=== PATIENT | female | born 1960 | race Caucasian/White ===

== ENCOUNTER 2017-08-14 15:54 | Outpatient (CLI) | payer BC | END 2017-08-14 15:55 | disposition home or self-care (01) | LOC: BICMAMMO 15:54 | PROVIDERS: ATTEND Obstetrics & Gynecology | DX: Z12.31 Encounter for screening mammogram for malignant neoplasm of breast (principal) | CPT/HCPCS: 77063; 77067 ==

== ENCOUNTER 2018-08-15 10:37 | Outpatient (CLI) | payer BC ==
--- NOTE | 2018-08-15 11:26 | MMO ---
Bilateral MAMMO Bilat Screen [facility]. CLINICAL HISTORY: Patient is 58 years old and is seen for screening. The patient has no family history of breast cancer. The patient has no personal history of cancer. The patient has a history of bilateral Breast reduction in August, - benign. VIEWS: The views performed were: bilateral craniocaudal with tomosynthesis and bilateral mediolateral oblique with tomosynthesis. FILMS COMPARED: The present examination has been compared to prior imaging studies performed at [facility] on 08/06/2014, 08/08/2015, 07/24/2016 and 08/14/2017. MAMMOGRAM FINDINGS: There are scattered fibroglandular densities. There are no suspicious masses, suspicious calcifications, or new areas of architectural distortion. IMPRESSION: THERE IS NO MAMMOGRAPHIC EVIDENCE OF MALIGNANCY. A ROUTINE FOLLOW-UP MAMMOGRAM IN 1 YEAR IS RECOMMENDED. THE RESULTS OF THIS EXAM WERE SENT TO THE PATIENT. ACR BI-RADS Category 1 - Negative MAMMOGRAPHY NOTE: 1. A negative mammogram report should not delay a biopsy if a dominant of clinically suspicious mass is present. 2. Approximately 10% to 15% of breast cancers are not detected by mammography. 3. Adenosis and dense breasts may obscure an underlying neoplasm.
== END 2018-08-15 10:38 | disposition home or self-care (01) ==
LOC: BICMAMMO 10:37
PROVIDERS: ATTEND Obstetrics & Gynecology
DX: Z12.31 Encounter for screening mammogram for malignant neoplasm of breast (principal); Z98.890 Other specified postprocedural states
CPT/HCPCS: 77063; 77067

== ENCOUNTER 2019-03-04 08:40 | Outpatient (CLI) | payer BC ==
--- NOTE | 2019-03-04 09:07 | MMO ---
Right Breast MAMMO Unilat Diag [facility]. CLINICAL HISTORY: Patient is 58 years old and is seen for diagnostic exam. The patient has a history of bilateral Breast reduction in August, - benign. VIEWS: The views performed were: . FILMS COMPARED: The present examination has been compared to prior imaging studies performed at [facility] on 08/08/2015, 07/24/2016, 08/14/2017 and 08/15/2018. This study has been interpreted with the assistance of computer-aided detection. MAMMOGRAM FINDINGS: There are scattered fibroglandular densities. There are no suspicious masses, suspicious calcifications, or new areas of architectural distortion. IMPRESSION: THERE ARE NO MAMMOGRAPHIC ABNORMALITIES TO EXPLAIN THE PATIENT'S BREAST PAIN. THE PATIENT IS REFERRED BACK TO HER CLINICIAN. NEGATIVE IMAGING FINDINGS SHOULD NOT PRECLUDE FURTHER EVALUATION IF CLINICAL FINDINGS ARE SUSPICIOUS. THE RESULTS OF THIS EXAM WERE SENT TO THE PATIENT. ACR BI-RADS Category 1 - Negative MAMMOGRAPHY NOTE: 1. A negative mammogram report should not delay a biopsy if a dominant of clinically suspicious mass is present. 2. Approximately 10% to 15% of breast cancers are not detected by mammography. 3. Adenosis and dense breasts may obscure an underlying neoplasm. Reported by: CONCHITA PENA MD Electonically Signed: [id number]
== END 2019-03-04 08:41 | disposition home or self-care (01) ==
LOC: BICMAMMO 08:40
PROVIDERS: ATTEND Obstetrics & Gynecology
DX: N64.4 Mastodynia (principal)
CPT/HCPCS: G0279

== ENCOUNTER 2019-09-14 07:45 | Outpatient (CLI) | payer BC, SELFPAY ==
--- NOTE | 2019-09-14 09:17 | MMO ---
Bilateral MAMMO Bilat Screen [facility]. CLINICAL HISTORY: Patient is 59 years old and is seen for screening. The patient has no family history of breast cancer. The patient has no personal history of cancer. The patient has a history of bilateral Breast reduction in August, - benign. VIEWS: The views performed were: bilateral craniocaudal with tomosynthesis and bilateral mediolateral oblique with tomosynthesis. FILMS COMPARED: The present examination has been compared to prior imaging studies performed at [facility] on 07/24/2016, 08/14/2017, 08/15/2018 and 03/04/2019. This study has been interpreted with the assistance of computer-aided detection. MAMMOGRAM FINDINGS: There are scattered fibroglandular densities. There are no suspicious masses, suspicious calcifications, or new areas of architectural distortion. IMPRESSION: THERE IS NO MAMMOGRAPHIC EVIDENCE OF MALIGNANCY. A ROUTINE FOLLOW-UP MAMMOGRAM IN 1 YEAR IS RECOMMENDED. THE RESULTS OF THIS EXAM WERE SENT TO THE PATIENT. ACR BI-RADS Category 1 - Negative MAMMOGRAPHY NOTE: 1. A negative mammogram report should not delay a biopsy if a dominant of clinically suspicious mass is present. 2. Approximately 10% to 15% of breast cancers are not detected by mammography. 3. Adenosis and dense breasts may obscure an underlying neoplasm. Reported by: CONCHITA PENA MD Electonically Signed: [id number]
== END 2019-09-14 07:46 | disposition home or self-care (01) ==
LOC: BICMAMMO 07:45
PROVIDERS: ATTEND Obstetrics & Gynecology
DX: Z12.31 Encounter for screening mammogram for malignant neoplasm of breast (principal); Z98.890 Other specified postprocedural states
CPT/HCPCS: 77063; 77067

== ENCOUNTER 2020-05-25 08:40 | Outpatient (CLI) | payer BC | END 2020-05-25 08:41 | disposition home or self-care (01) | LOC: CTENTCT 08:40 | PROVIDERS: ATTEND Specialist | DX: J32.9 Chronic sinusitis, unspecified (principal) | CPT/HCPCS: 70486 ==

== ENCOUNTER 2020-10-25 07:59 | Outpatient (CLI) | payer BC | END 2020-10-25 08:00 | disposition home or self-care (01) | LOC: BICMAMMO 07:59 | PROVIDERS: ATTEND Obstetrics & Gynecology | DX: Z12.31 Encounter for screening mammogram for malignant neoplasm of breast (principal); Z98.82 Breast implant status | CPT/HCPCS: 77063; 77067 ==